=== PATIENT | male | born 1930 | race Caucasian/White ===

== ENCOUNTER 2019-05-16 17:06 | Inpatient (IN) | payer OTHER ==
[~2019-05-16] VITALS: Ht 172.7 cm; Wt 59.0 kg
[~2019-05-16 17:06] MED LIST: COUMADIN5 MG PO; LANOXIN0.25 MG PO; METROPOLOL 50MG
[2019-05-16] MEDS ORDERED: ELIQUIS5 M1 (17:59)
[2019-05-16] MEDS ORDERED: ASPIR 8181 MG (17:59)
[2019-05-16] MEDS ORDERED: LIPITOR80 MG (17:59)
[2019-05-16] MEDS ORDERED: LANOXIN125 MCG (17:59)
[2019-05-16] MEDS ORDERED: GRALISE600 MG (18:00)
[2019-05-16] MEDS ORDERED: ACID CONTROL150 MG (18:00)
[2019-05-16] MEDS ORDERED: MIRTAZAPINE15 M1 (18:00)
[2019-05-16] MEDS ORDERED: METOPROLOL SUC100 MG (18:00)
[2019-05-16] MEDS ORDERED: TAMS0.4C (18:01)
[2019-05-16] MEDS ORDERED: FLOLIPID40 MG/5 ML (18:01)
--- NOTE | 2019-05-16 18:01 | NUR ---
PTE ALERTA Y ORIENTADO X3 ACOMPANADO EN [place], PTE SVEN CON SIGO ADMISION DIRECTA DE .
--- NOTE | 2019-05-16 19:19 | NUR ---
PT ALERTA Y ORIENTADO X3 ESFERAS SE LE ORIENTA SOBRE TX Y REFIERE ENTEDER. SE FELIPE MUESTRAS DE KALEY Y VENOPUNCION CON TECNICAS ASEPTICSA. SE ADMINISTRAN IVFLUIDS ORDENADOS. PT TOLERA TX. SE REALIZA EKG Y SE PRESENTA A DR QUARLES. SE INTNETA REALIZAR INSERCION DE ROSS CATETER CON TECNICAS ASEPTICSA Y ESTERILES CON ROSS FRANGE- 16, SIN EXITO. SE INTENTA CON CATETER FRANGE 12, SIN EXITO. FAMILIAR INDICA NO TENER NINGUN PROBLEMA PARA ORINAR, SE NANI PETER ROSS, PENDIENTE PARA MUESTRA DE U/A. PT TOLERA TX, TRANQUILO Y SIN DIFICULTAD RESPIRATORIA. DR QUARLES ORDENA TRASLADAR A UNIDAD DE CRITICO. SE TRASLADA PT EN DILLON EN COMPANIA DE ESCOLTA Y FAMILIAR A UNIDAD DE CRITICO ER Y SE UBICA EN CAMA 2. SE CONECTA A MONITOR CARDIACO Y SATUROMETRO DE PULSO. A CARGO DE LYLA DEVINE.
--- NOTE | 2019-05-16 19:30 | NUR ---
SE RECIBE PACIENTE ALERTA Y ORIENTADO X3 ACOMPANADO POR ROBLES ENCARGADA, PACIENTE CON ORDEN DE DR. QUARLES PARA CONECTAR A MONITOR CARDIACO Y OXIMETRO DE PULSO YA QUE DR. QUARLES EVALUA EKG Y PRECENTA FIBRILACION, SE EJECUTA ORDEN MEDICA DE DR. QUARLES QUE EVALUA A PACIENTE Y ORDENA ADMINISTRAR VOLO IV DE CARDIZEM 15 MG Y COMENZAR EN DRIP DE CARDIZEM 125MG/100 ML DE NSS A BAJAR A 10ML/HR, SE EJCUTA ORDEN MEDICA PACIENTE AL MOMENTO CON HR DE 160 L/M LUEGO DE ADMINISTRACION DE VOLO DE 15MG CONVIERTE A 89 L/M. PACIENTE TOLERA TRATAMIENTO SE MANTIENE EN OBSERVACION POR CAMBIOS. 1950 TECNICO DE ORTOPEDIA A.GUTIERE EVALUA A PACIENTE Y COLOCA MUSE TRATION DE 5 LBS EN PIERNA RT POR ORDEN MEDICA. PACIENTE TOLERA PROCEDIMIENTO. 2100 SE ADMINISTRA MEDICAMENTO LOVENOX 60 MG SUBCUTANEO POR ORDEN MEDICA DE DR. QUARLES. SE NOTIGICAN CONSULTA A DR.RIVERA BIRD PACIENTE DE DR. LIANG.
--- NOTE | 2019-05-16 22:56 | NUR ---
2300 SE ENTREGA PACIENTE A WESLY CONECTADO A MONITOR CARDIACO OXIMETRO DE PULSO 0.9NSS POR PERIFERAL RT PATENTE BAJANDO A 80ML/HR CARDIZEM DRIP POR PERIFERAL LT PATENTE NIKKI DE EDEMA Y ERITEMA A 10 ML/HR, PETER ROSS CON ORINA AMARILLO CRISTIAN, MUSE TRATION DE 5 LBS EN PIERNA RT. PACIENTE ALERTA Y ORIENTADO X3, PENDIENTE REALIZAR CT DE ESTREMIDADES INFERIORES
--- NOTE | 2019-05-16 23:09 | NUR ---
SE RECIBE MASCULINO ALERTA Y ORIENTADO POR GEORGE ESFERAS, EN CAMA CON BARANDAS SEGURAS Y ELEVADAS. CONECTADO A MONITOR CARDIACO CON OXIMETRIA DE PULSO. CANALIZADO EN BRAZO DERECHO X1 Y EN BRAZO BISHOP X1 CON AREA DE VENOPUNCIONES LIBRES DE EDEMA O ENROJECIMIENTO. RECIBIENDO 0.9% NSS @ 80 ML/HR. CARDIZEM DRIP 125MG/100ML @ 10 ML/HR. CONDOM ROSS PRESENTE. REFIERE TENER DOLOR EN CAERA Y RODILLA IZQUIERDA. SE MANTIENE NPO. SE MANTIENE EN OBSERVACION POR CAMBIOS.
--- NOTE | 2019-05-17 00:30 | NUR ---
DR. MARCIA Lloyd ORDENA DISMINUIR EL RATE DEL DRIP DE CARDIZEM 1ML/HR.
--- NOTE | 2019-05-17 07:00 | NUR ---
SE RECIBE DE TURNO ANTERIOR EN ICU-2. MASCULINO DE 87 ANOS,ALERTA,ORIENTADO EN KHRIS GEORGE ESFERAS. UBICADO EN CAMA 02 CON BARANDAS ELEVADAS,FRENOS,DAY DE IDENTIFICACION COLOCADOS POR SEGURIDAD. CONECTADO A MONITOR CARDIACO,OXIMETRIA DE PULSO CONTINUA,SATURANDO 100%. EXTREMIDADES SUPERIORES LIBRES DE EDEMA. ABDOMEN BALNDO,PERISTALSIS PRESENTE. VENOPUNCIONES PATENTES,RECIBIENDO 0.9%NaCL 1,000 ML @ 80ML/HR; CARDIZEM 125MG/100ML @ 4ML/HR. LAS MISMAS SE OBSERVAN LIMPIAS,SECAS,LIBRES DE S/S EDEMA Y/O ERITEMA. PACIENTE TIENE COLOCADO CONDOM MITCHELL. TRACCION EN RAVI CAREY. PENDIENTE CONSULTA CON ,. PENDIENTE ESTUDIO CT EXTREMIDADES INFERIORES SHAWN ORDEN MEDICA SERA REALIZADO EN AM. PACIENTE TRANQUILO,DESCANSANDO EN CAMA.
--- NOTE | 2019-05-17 09:25 | NUR ---
SE ORIENTA PACIENTE SOBRE MEDICAMENTO ORDENADO PARA DOLOR.REFIERE COMPRENDER, DESEAR EL MISMO. SE ADMINISTRA MEDICAMENTO SHAWN ORDEN MEDICA SIGUIENDO MEDIDAS ASEPTICAS. PACIENTE NO PRESENTA REACCION ADVERSA.
--- NOTE | 2019-05-17 09:34 | NUR ---
SE ORIENTA PACIENTE SOBRE ANUJA EN CAMA,REFIERE COMPRENDER. PACIENTE REHUSA ANUJA EN CAMA.
[2019-05-22] MEDS ORDERED: DUI500 PO (13:23)
[2019-05-22] MEDS ORDERED: ELIQUIS2.5 MG PO (13:23)
[2019-05-22] MEDS ORDERED: PERCOCET 5-3251 EACH PO (13:23)
== END 2019-06-22 18:48 | disposition expired | DRG 981 ==
LOC: ER 17:06 → SURH 05-17 09:33 → SURG 05-17 09:33 → SURH 05-25 15:48
PROVIDERS: ADMIT Orthopaedic Surgery
PROC: B246ZZZ Ultrasonography of Right and Left Heart (ICD-10-PCS; 2019-05-17)
PROC: 30233N1 Transfusion of Nonautologous Red Blood Cells into Peripheral Vein, Percutaneous Approach (ICD-10-PCS; 2019-05-17)
PROC: BQ20ZZZ Computerized Tomography (CT Scan) of Right Hip (ICD-10-PCS; 2019-05-17)
PROC: 5A1945Z Respiratory Ventilation, 24-96 Consecutive Hours (ICD-10-PCS; 2019-05-20)
PROC: BB24ZZZ Computerized Tomography (CT Scan) of Bilateral Lungs (ICD-10-PCS; 2019-05-22)
PROC: 8E0ZXY6 Isolation (ICD-10-PCS; 2019-05-23)
PROC: 0DH63UZ Insertion of Feeding Device into Stomach, Percutaneous Approach (ICD-10-PCS; 2019-06-11)
PROC: 3E0G76Z Introduction of Nutritional Substance into Upper GI, Via Natural or Artificial Opening (ICD-10-PCS; 2019-06-11)
PROC: 0T9B70Z Drainage of Bladder with Drainage Device, Via Natural or Artificial Opening (ICD-10-PCS; 2019-06-17)
PROC: 02HV33Z Insertion of Infusion Device into Superior Vena Cava, Percutaneous Approach (ICD-10-PCS; 2019-06-18)
PROC: 0QH636Z Insertion of Intramedullary Internal Fixation Device into Right Upper Femur, Percutaneous Approach (ICD-10-PCS; principal; 2019-06-20)
PROC: 4A033R1 Measurement of Arterial Saturation, Peripheral, Percutaneous Approach (ICD-10-PCS; 2019-06-20)
PROC: 0BH17EZ Insertion of Endotracheal Airway into Trachea, Via Natural or Artificial Opening (ICD-10-PCS; 2019-06-22)
PROC: 5A1935Z Respiratory Ventilation, Less than 24 Consecutive Hours (ICD-10-PCS; 2019-06-22)
DX: I48.0 Paroxysmal atrial fibrillation (principal); S72.141A Displaced intertrochanteric fracture of right femur, initial encounter for closed fracture; I50.23 Acute on chronic systolic (congestive) heart failure; J95.822 Acute and chronic postprocedural respiratory failure; B37.1 Pulmonary candidiasis; J69.8 Pneumonitis due to inhalation of other solids and liquids; J10.08 Influenza due to other identified influenza virus with other specified pneumonia; J15.7 Pneumonia due to Mycoplasma pneumoniae; R65.21 Severe sepsis with septic shock; D65 Disseminated intravascular coagulation [defibrination syndrome]; I13.0 Hypertensive heart and chronic kidney disease with heart failure and stage 1 through stage 4 chronic kidney disease, or unspecified chronic kidney disease; N17.8 Other acute kidney failure; E87.4 Mixed disorder of acid-base balance; B37.49 Other urogenital candidiasis; D62 Acute posthemorrhagic anemia; J95.89 Other postprocedural complications and disorders of respiratory system, not elsewhere classified; J98.11 Atelectasis; E87.0 Hyperosmolality and hypernatremia; J91.8 Pleural effusion in other conditions classified elsewhere; K26.3 Acute duodenal ulcer without hemorrhage or perforation; G72.81 Critical illness myopathy; T17.898A Other foreign object in other parts of respiratory tract causing other injury, initial encounter; B96.1 Klebsiella pneumoniae [K. pneumoniae] as the cause of diseases classified elsewhere; K29.00 Acute gastritis without bleeding; E86.0 Dehydration; I08.3 Combined rheumatic disorders of mitral, aortic and tricuspid valves; N40.0 Benign prostatic hyperplasia without lower urinary tract symptoms; K80.80 Other cholelithiasis without obstruction; R31.0 Gross hematuria; N18.3 Chronic kidney disease, stage 3 (moderate); G30.0 Alzheimer's disease with early onset; R13.14 Dysphagia, pharyngoesophageal phase; N35.811 Other urethral stricture, male, meatal; D50.8 Other iron deficiency anemias; F02.80 Dementia in other diseases classified elsewhere, unspecified severity, without behavioral disturbance, psychotic disturbance, mood disturbance, and anxiety; G47.33 Obstructive sleep apnea (adult) (pediatric); Z79.01 Long term (current) use of anticoagulants; Z99.81 Dependence on supplemental oxygen; Z86.73 Personal history of transient ischemic attack (TIA), and cerebral infarction without residual deficits